=== PATIENT | female | born 2005 | race African-American/Black ===

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

== ENCOUNTER 2025-02-08 06:36 | Emergency (ER) | payer MEDICAID ==
[~2025-02-08] VITALS: Ht 165.1 cm; Wt 81.6 kg
[~2025-02-08 06:36] MED LIST: ALBU18HF2 INH; PRED50TA PO
[2025-02-08] MEDS: ALBUTEROL FS 2.5 MG/3 ML VIAL.NEB NEB ONE (07:35)
[2025-02-08] MEDS: IPRATROPIUM NEB FS 0.5 MG/2.5 ML AMPUL.NEB NEB ONE (07:35)
[2025-02-08] MEDS ORDERED: IPRATROPIUM NEB FS 0.5 MG/2.5 ML AMPUL.NEB ONE (07:47)
[2025-02-08] MEDS ORDERED: ALBUTEROL FS 2.5 MG/3 ML VIAL.NEB ONE (07:47)
[2025-02-08 07:50] VITALS: O2SAT 100
[2025-02-08 08:10] VITALS: O2SAT 100
[2025-02-08 08:33] VITALS: BP 110/68; TEMP 98.4; O2SAT 100
== END 2025-02-08 08:35 | disposition home or self-care (01) ==
LOC: ER 06:46
DX: J45.901 Unspecified asthma with (acute) exacerbation (principal); Z79.52 Long term (current) use of systemic steroids; Z91.048 Other nonmedicinal substance allergy status